=== PATIENT | male | born 1985 | race Caucasian/White ===

== ENCOUNTER 2025-08-01 15:54 | Emergency (ER) | payer BC, SELFPAY ==
--- OUTSIDE RECORDS SUMMARY | 2025-08-01 15:57 | XMS_ITS | Clinical Summary ---
Author Organization [facility] Address [address] [place] [address] Care Team Providers Care Spring Coiler Hand Name Role Phone Bobby Sorenson MD Primary Care Provider [phone] Allergies No known active allergies Medications ibuprofen 200 MG tablet Take 200 mg by mouth every 6 (six) hours as needed for Pain. Active omeprazole 20 MG capsule Take 20 mg by mouth daily. Active Active Problems Problem Noted Date Diagnosed Date Closed oblique fracture of w aist of scaphoid with routine healing, right 08/21/2019 Immunizations Immunization Administration Dates Next Due Dtp (Generic) 03/30/1990,01/22/1987 Hepatitis B Pediatric 09/22/1999,08/25/1999 MMR (MMRII) 08/25/1999,07/24/1986 PFIZER COVID-19 (ORIGINAL FO RMULATION, PURPLE CAP) mRNA, LNP-S, PF, 30 MCG/0.3 ML DOSE 08/31/2021,08/10/2021 Polio Opv (Generic) 03/30/1990,01/22/1987 Family History Medical History Relation Comments Diabetes Father No Known Problems Mother Relation Status Comments Father Alive Mother Alive Social History Tobacco Use Types Packs/Day Years Used Date Smoking Tobacco: Former Smokeless Tobacco: Never Tobacco Cessation:Counseling Given: No Comments:quit over 15 years ago Alcohol Use Standard Drinks/Week Comments Yes 0 (1 standard drink = 0.6 oz pur e alcohol) PHQ-2 Answer Date Recorded PHQ-2 Score - If the patient scores above 3, please move on to questions 3-9 0 08/31/2021 Sex and Gender Information Value Date Recorded Sex Assigned at Not on file Legal Sex Male 8:18 PM CDT Gender Identity Male 10/23/2021 8:30 AM IRON P[employer] Sexual Orientation Straight 10/23/2021 8: 30 AM IRON POURER Last Filed Vital Signs Vital Sign Reading Time Taken Comments Blood Pressure 120/82 12/08/2021 3:30 PM IRON P[employer]ER Pulse 86 12/08/2021 3:30 PM [employer]ON P[employer] Temperature 36.4 C (97.6 F) 12/08/2021 3:30 PM IRON POURER Respiratory Rate 18 12/08/2021 3:30 PM IRON POURER Oxygen Saturation 96% 12/08/2021 3:30 PM IRON POURER Inhaled Oxygen Concentration - - Weight 106.4 kg (234 lb 9.6 oz) 12/08/2021 3:30 PM IRON POURER Height 180.3 cm (5' 11) 12/08/2021 3:30 PM IRON POURER Body Mass Index 32.72 12/08/2021 3:30 PM IRON POURER Plan of Treatment Health Maintenance Due Date Last Done Comments Hepatitis B Vaccines (3 of 3 - 3-dose series) 12/15/1999 09/22/1999, 08/25/1999 Hepatitis C 2003 DTaP, Tdap and Td Vaccines ( 3 - Tdap) 2004 03/30/1990, 01/22/1987 HPV Vaccines (1 - 3-dose SCD M series) 2012 Annual Physical 08/31/2022 08/31/2021 COVID-19 Vaccine (3 - 2024-2 6 season) 2025 08/31/2021, 08/10/2021 Meningococcal B Vaccine Aged Out No l onger eligible based on patient's age to complete this topic Meningococcal Vaccine Aged Out No jovi makayla eligible based on patient's age to complete this topic Pneumococcal Vaccine: Pediatrics (0 to 5 Years) and At-Risk Patients (6 to 49 Years) Aged Out No longer eligible b ased on patient's age to complete this topic RSV Immunizations Under 20 Months Aged Out No longer eligible b ased on patient's age to complete this topic Insurance [facility] Care Teams Spring Coiler Hand Relationship Specialty [place] [address] [place] [address] PCP - General FAMILY PRACTICE 08/31/21
[2025-08-01 16:05] VITALS: BP 127/87; PULSE 74; RESP 18; TEMP 36.8; O2SAT 98
--- NOTE | 2025-08-01 16:24 | ED_ITS ---
HPI - URI/Sore Throat General Chief Complaint: Upper Respiratory Infection Stated Complaint: cold symptoms Time Seen by Provider: 08/01/25 15:58 Source: patient and RN notes reviewed Mode of arrival: ambulatory Limitations: no limitations History of Present Illness HPI Narrative: 40-year-old male presents today with a 2 day history of scratchy throat with fatigue, headache, congestion, cough, rhinorrhea started yesterday. Denies fever or shortness of breath. Denies any known sick contacts. He has tried Tylenol without improvement. Related Data Home Medications ?Medication ?Instructions ?Recorded ?Confirmed ?Last Taken ?Type No Home Medications 08/01/25 08/01/25 U nknown History Allergies Allergy/AdvReac Type Severity Reaction Status Date / Time No Known Allergies Allergy Verified 08/01/25 16:08 [facility] Comments At time of signature, I have reviewed and agree with nursing past medical, surgical, social and family history unless otherwise noted. Please see nursing chart for further information. There is no relevant family history pertinent to the presenting complaint Exam Narrative: GENERAL: Mildly ill-appearing, well-nourished, and in no acute distress. HEAD: Normocephalic, atraumatic. EYES: EOMI. No redness or drainage. Conjunctivae normal. ENT: Mucous membranes pink and moist. Nares congested with rhinorrhea. TMs normal bilaterally. Throat normal. Uvula midline. NECK: Normal AROM. Supple. No lymphadenopathy. CHEST: No respiratory distress. Clear to auscultation. HEART: Regular rate and rhythm. No murmur appreciated. EXTREMITIES: Normal range of motion. No edema. SKIN: Warm, dry, no rash. Capillary refill normal. Normal skin turgor. NEURO: No focal deficits. Alert and oriented x3. Gait steady. PSYCH: Normal affect. No signs of depression or anxiety. Course Course Level of Care: Express Care Visit Vital Signs Vital signs: Vital Signs Temperature 98.2 F 08/01/25 16:05 Pulse Rate 74 08/01/25 16:05 Respiratory Rate 18 08/01/25 16:05 Blood Pressure 127/87 08/01/25 16:05 Pulse Oximetry 98 08/01/25 16:05 Oxygen Delivery Room Air 08/01/25 16:05 Temperature 98.2 F 08/01/25 16:05 Pulse Rate 74 10/02/25 16:05 Respiratory Rate 18 08/01/25 16:05 Blood Pressure 127/87 08/01/25 16:05 Pulse Oximetry 98 08/01/25 16:05 Oxygen Delivery Room Air 08/01/25 16:05 Reviewed MDM - URI/Sore Throat MDM Narrative Medical decision making narrative: 40-year-old male presents today with a 2 day history of scratchy throat with fatigue, headache, congestion, cough, rhinorrhea started yesterday. Denies fever or shortness of breath. Denies any known sick contacts. He has tried Tylenol without improvement. Patient declines testing for COVID-19 or influenza. Upon exam, he is mildly ill-appearing with nasal congestion and rhinorrhea. Symptoms likely viral in etiology. Discussed [id number] medication use and duration of illness. No prescription medications indicated at this time. Anticipatory guidance given. Vital signs stable. Patient agrees with plan. Differential Diagnosis Differential diagnosis: Likely upper respiratory infection, sinusitis, viral infection, bronchitis, influenza and other (COVID-19) Critical Care Time Critical Care Time Critical Care Time: No Discharge Plan Discharge Clinical Impression: Upper respiratory infection Qualifiers: URI type: unspecified URI Qualified Code(s): J06.9 - Acute upper respiratory infection, unspecified Patient Disposition: Home Condition: Stable Instructions: Upper Respiratory Infection (DC) Additional Instructions: Your symptoms are likely due to a viral illness, which is not treated with antibiotics. Virus symptoms can last for up to 7-10days. Take Tylenol or ibuprofen for pain or fever, if able according to package directions. Consider bbdu-nis-ktslyeg cough medicine such as Delsym, DayQuil, NyQuil, Mucinex. Rest and stay hydrated. Follow up with your PCP in 7 days if symptoms are not improving. Go to the ER immediately if you develop shortness of breath, difficulty swallowing, or any other concerning symptoms. Your blood pressure was elevated above 120/80 today at Urgent Care. This puts you above the threshold for follow up. Please schedule a followup visit with your personal physician as soon as possible, for further evaluation and treatment. Even blood pressure exceeding 120/80 may indicate pre-hypertension. Patient Language: Welsh Prescriptions: No Action No Home Medications Follow-up/Referrals: Delta,Bobby Lucio MD [Primary Care Provider] Time of Disposition: 16:26
== END 2025-08-01 16:28 | disposition home or self-care (01) ==
PROVIDERS: Emergency Provider Nurse Practitioner; PCP Family Medicine
DX: J06.9 Acute upper respiratory infection, unspecified (principal)
CPT/HCPCS: 99202; G0463